=== PATIENT | female | born 1945 | race Caucasian/White ===

== ENCOUNTER 2024-09-11 11:33 | Emergency (ER) | payer OTHER, SELFPAY ==
[2024-09-11 11:36] VITALS: BP 199/115
[2024-09-11 12:06] VITALS: BMI 23.3
[2024-09-11 13:00] VITALS: BP 181/92
--- NOTE | 2024-09-11 13:02 | ED.GENMED ---
History of Present Illness
General
Chief Complaint: Fall
Source: patient
Exam Limitations: none
Time Seen by Provider: 09/11/24 11:55
Nursing documentation reviewed up to this point in time: agreed with
History of Present Illness
History of Present Illness:
Patient presents to ED after fall while walking outside. Patient presents with laceration on her right side of eyebrow as well as right elbow pain. Denies any other injuries. Denies headache or dizziness. Denies neck pain. Denies loss of
sensation or weakness. Denies difficulty with ambulation. Denies back pain. Patient unsure of her last tetanus vaccination.
Past History
Past History
ED Past Medical History: CAD, IDDM and Other
ED Past Surgical History: Cholecystectomy
Social History
Tobacco: Non-smoker
Alcohol: None
Drug: None
Living: with family
Employment: Retired
Review of Systems
Review of Systems
Allergies reviewed?: Yes
All Other Systems: ROS reviewed and negative except as documented in HPI and ROS
Constitutional: Reports no symptoms
Respiratory: Reports no symptoms; Denies trouble breathing
Cardiac: Reports no symptoms; Denies chest pain
ABD/GI: Reports no symptoms
Musculoskeletal: Reports other (elbow pain)
Skin: Reports other (right eyebrow laceration)
Neurological: Reports no symptoms; Denies dizzy, headache or weakness
Phy Exam
Physical Exam
Physical Exam:
Physical Exam
General: no apparent distress, not acutely ill
Head: ecchymosis with an approx 2cm superficial, linear laceration noted lateral to right eyebrow, without active bleeding
Neck: supple. no meningeal signs
Heart: s1/s2 regular rate and rhythm, no murmur. equal radial pulses.
Lungs: no acute respiratory distress. clear bilaterally. chest wall nontender to palpation.
Abdomen: normal bowel sounds. not tender.
Neuro: alert and oriented. no focal neurological deficits
Skin: no rash
Psychiatric: well kept. interactive and cooperative
Extremities: mild tenderness to palpation over right olecranon, without deformity.
Course
Orders/Labs/Results
Orders:
Orders
09/11/24 12:13
CT Head W/o Iv Contrast Urgent
Comment:
Reason For Exam: trauma to right side of head
CR Elbow - Right Min 3 Views Urgent
Comment:
Reason For Exam: trauma
Vital Signs
Initial and Last Documented VS:
Initial Vital Signs
Temp Pulse Resp BP Pulse Ox
99.4 F 92 16 199/115 97
09/11/24 11:36 09/11/24 11:36 09/11/24 11:36 09/11/24 11:36 09/11/24 11:36
Last Documented Vital Signs
Temp Pulse Resp BP Pulse Ox
99.4 F 75 18 181/92 97
09/11/24 11:36 09/11/24 13:00 09/11/24 13:00 09/11/24 13:00 09/11/24 13:00
Procedures
Laceration Closure
Right Lateral Eye brow:
Status of Wound: clean
Size of Wound in cm: 3
Description of Wound Edges: sharp
Preparation: cleaned with SurClens
Revision/Debridement: routine- no revision
Type of Closure: single layer closure and Dermabond-skin glue
MDM/Problems Addressed
MDM/Problems Addressed:
Patient states that she will discuss with her PMD week regarding her tetanus vaccination.
CT head: NAD
X-ray: no acute fx. An arm sling provided for comfort.
Pt otherwise is well appearing and neurologically intact, at time of discharge, to the care of her family.
Laceration well approximated with application of dermabond.
*Critical Care Note
Total Time (30-74mins, 75-104mins- exclusive of procedures): Not Applicable
ED Attending Note
-
Portions of this chart may have been created with voice recognition software.� Occasional wrong word or��sound alike� substitutions may have occurred due to the inherent limitations of voice recognition software.
Discharge Plan
Departure
Patient Disposition: Home (Routine Discharge)
Date of Disposition: 09/11/24
Time of Disposition: 13:22
Patient with high blood pressure during this ER visit?: Yes
Discharge Problem:
Eyebrow laceration, Contusion of elbow
Instructions: Laceration Repair With Glue (DC), Head Injury in Adults (DC), Contusion (DC)
Prescriptions:
No Action
lisinopril 40 MG tablet
40 mg PO DAILY
metformin 500 MG tablet
1,000 mg PO BID Qty: 0 0RF
Rx Instructions:
REsume on Friday am
metoprolol succinate 25 MG tablet extended release 24 hr
25 mg PO DAILY
Novolog Mix 70/30:
8 units SC DAILY
Novolog Mix 70/30:
4 units SC QPM
celecoxib 200 MG capsule
200 mg PO DAILY Qty: 30 0RF
Rx Instructions:
1 daily for 1 month
sennosides [senna] 1 TABLET tablet
2 tab PO BID 0RF
hydrocodone-acetaminophen 1 TABLET tablet
1 tab PO Q4HPRN PRN (Reason: mild pain) Qty: 60 0RF
Rx Instructions:
1-2 every 4-6 hour as needed for pain
magnesium hydroxide 30 ML suspension
30 ml PO DAILYPRN PRN (Reason: constipation) 0RF
aspirin 325 MG tablet,delayed release (DR/EC)
325 mg PO DAILY Qty: 30 0RF
Rx Instructions:
one daily 4 weeks then resume aspirin 81mg daily as before surgery
docusate sodium 100 MG capsule
100 mg PO BID 0RF
mupirocin 1 APPLIC ointment
2 % intranasal BID Qty: 1 0RF
Rx Instructions:
twice a day for two days after surgery
alum-mag hydroxide-simeth [Mag-Al Plus] 30 ML suspension
30 ml PO Q4HPRN PRN (Reason: INDIGESTION) 0RF
Referrals:
Beena Winchester CRNP [Family Provider] -
Activity Restrictions/Additional Instructions:
As discussed, please follow-up with your primary care physician with any further concerns. Please check with your primary care physician regarding your tetanus vaccination status.
Interventions
Interventions:
*Risk Screen - Suicide Last Done: 09/11/24 11:36
*General Assessment Last Done: 09/11/24 11:36
*Neglect/Abuse Screening Last Done: 09/11/24 11:36
ED- Fall Risk Assessment Last Done: 09/11/24 12:03
*ED COVID-19 Vaccine History Last Done: 09/11/24 11:36
*Nursing Disposition Last Done: 09/11/24 13:53
ED-Musculoskeletal Assessment Last Done: 09/11/24 12:03
ED- Neurological Assessment Last Done: 09/11/24 12:03
ED-Skin Assessment Last Done: 09/11/24 12:03
Discharge Date and Time
Discharge Date/Time: 09/11/24 13:54
Print Language: YAKUT
== END 2024-09-11 13:54 | disposition home or self-care (01) ==
LOC: EMR 11:33
PROVIDERS: EMERGENCY PHYSICIAN Emergency Medicine; FAMILY PHYSICIAN Nurse Practitioner Family
DX: S01.111A Laceration without foreign body of right eyelid and periocular area, initial encounter (principal); S50.01XA Contusion of right elbow, initial encounter; W18.09XA Striking against other object with subsequent fall, initial encounter; Y93.01 Activity, walking, marching and hiking; Y92.89 Other specified places as the place of occurrence of the external cause; R03.0 Elevated blood-pressure reading, without diagnosis of hypertension; I25.10 Atherosclerotic heart disease of native coronary artery without angina pectoris; K21.9 Gastro-esophageal reflux disease without esophagitis; K57.90 Diverticulosis of intestine, part unspecified, without perforation or abscess without bleeding; M19.90 Unspecified osteoarthritis, unspecified site; E07.9 Disorder of thyroid, unspecified; E11.36 Type 2 diabetes mellitus with diabetic cataract; Z96.641 Presence of right artificial hip joint; Z90.49 Acquired absence of other specified parts of digestive tract; Z79.4 Long term (current) use of insulin
CPT/HCPCS: 99284; 12013; 70450; 73080

== ENCOUNTER → 2024-12-14 10:03 | Outpatient (REF) | payer OTHER, SELFPAY | LOC: RCS 10:03 | PROVIDERS: ATTENDING PHYSICIAN Internal Medicine Cardiovascular Disease; FAMILY PHYSICIAN Nurse Practitioner Family | DX: I25.5 Ischemic cardiomyopathy (principal); I42.9 Cardiomyopathy, unspecified; I25.10 Atherosclerotic heart disease of native coronary artery without angina pectoris; I50.22 Chronic systolic (congestive) heart failure | CPT/HCPCS: 93306 ==